=== PATIENT | female | born 1965 | race Caucasian/White ===

== ENCOUNTER 2021-10-22 08:02 | Outpatient (CLI) | payer BC, SELFPAY ==
--- NOTE | ~2021-10-22 | XR_ITS ---
EXAMINATION: XR lg joint inject/asp w image DATE: 10/22/2021 09:04 INDICATION: Right knee osteoarthritis. TECHNIQUE: A time-out was performed to verify the patient's name, date of , and procedure to b e performed. The procedure including the risks, benefits, and alternatives was discussed with the pat ient. Risks discussed included bleeding and infection. The patient understood the risks and agreed to proceed. The skin overlying the right knee joint was prepped and draped in usual sterile fashion. Anesthetic was administered with 1% lidocaine subcutaneously. A 22 G needle was advanced under fluor oscopic guidance into the joint. Subsequently, injectate consisting of 3 mL 1% lidocaine and 2 mL 40 mg/mL Depo-Medrol was instilled. The needle was removed and the entry site was cleaned and dressed. There were no immediate complications. Fluoroscopy exposure time was 0.1 minutes. The total number of images was 1. FINDINGS: Real-time fluoroscopy demonstrates the needle in the right knee joint. IMPRESSION: 1. Fluoroscopy guided right knee joint injection of local anesthetic and steroid with decrease in the patient's presenting pain. Reviewed, dictated and finalized at location A. IMPRESSION: 1. Fluoroscopy guided right knee joint injection of local anesthetic and steroi d with decrease in the patient's presenting pain.
== END 2021-10-22 08:03 | disposition home or self-care (01) ==
LOC: ANHIMG 08:08
PROVIDERS: PCP Family Medicine; Visit Provider Orthopaedic Surgery
DX: M25.561 Pain in right knee (principal)
CPT/HCPCS: 20610; 77002; J1030; Q9966